=== PATIENT | female | born 1960 | race Caucasian/White ===

== ENCOUNTER → 2017-06-06 | Outpatient (CLI) | payer BC ==
--- NOTE | 2017-06-08 09:58 | MR ---
EXAMINATION TYPE: MR shoulder RT wo con DATE OF EXAM: 06/06/2017 COMPARISON: NONE HISTORY: Right Shoulder Pain x6 Months TECHNIQUE: Multiplanar, multisequence imaging of the right shoulder is performed without contrast. FINDINGS: Rotator Cuff: There is a mid grade full thickness tear of the anterior insertional fibers of the supr aspinatus measuring 1.4 x 1.6 cm superimposed upon moderate tendinopathy with bursal surface fraying of the intact posterior fibers. Hemorrhage is also seen in the area of tear. No muscular atrophy. Mild infraspinatus tendinopathy and bursal surface fraying is seen. No discrete tear. Teres minor is unremarkable and muscle volume and muscle/tendon signal. The subscapularis is also unremarkable in muscle volume and muscle/tendon signal. Acromioclavicular Joint: There is severe acromioclavicular joint arthropathy with subchondral cysts, marginal osteophytes, and capsular hypertrophy creating internal impingement impressing upon the supr aspinatus myotendinous junction and creating narrowing of the subacromial space. Glenohumeral Joint: Small osseous cystic changes are seen of the humeral head at the insertion of the rotator cuff. No significant joint space narrowing is noted. Labrum: There is global labral degeneration without distinct tear. Biceps Tendon: The biceps tendon is intact although there is attenuation proximal to the insertion of the biceps anchor in the intra-articular portion representing moderate grade tendinosis. Bone marrow signal: No focal abnormal marrow signal is appreciated. Other: Small amount of fluid is seen within the subdeltoid sinus subacromial space. IMPRESSION: 1. Grade full-thickness tear of the anterior insertional fibers of the supraspinatus measuring 1.4 x 1.6 cm. There is additional hemorrhage within the area of tear and moderate supraspinatus tendinopath y with bursal surface fraying. No muscular atrophy. 2. Mild infraspinatus tendinopathy with bursal surface fraying. 3. Severe chromic clavicular arthropathy with resulting in internal impingement of the myotendinous j unction of the supraspinatus. 4. Moderate intra-articular portion biceps tendinosis. 5. Global labral degeneration without appreciable tear on this nonarthrographic study. 6. Mild volume subacromial/subdeltoid bursal fluid which may clinically correlate with bursitis.
== END | disposition home or self-care (01) ==
LOC: RADMRIMAIN 16:49
PROVIDERS: ATTEND Orthopaedic Surgery
DX: M75.121 Complete rotator cuff tear or rupture of right shoulder, not specified as traumatic (principal); M75.91 Shoulder lesion, unspecified, right shoulder; M12.9 Arthropathy, unspecified

== ENCOUNTER → 2017-10-24 | Day surgery (SDC) | payer BC ==
[2017-10-22 08:36] VITALS: BMI 36.0
--- NOTE | 2017-10-23 13:58 | HP ---
HISTORY AND PHYSICAL Surgery scheduled for 10/24/2017 Stephanie Cervantes is a 57-year-old patient seen with progressive right shoulder pain. Treatment options were discussed with her. She elected to proceed with right shoulder arthroscopy. Consent regarding the procedure was obtained. PAST MEDICAL HISTORY: Hypothyroidism. PAST SURGICAL HISTORY: Bladder suspension surgery. DAILY MEDICATIONS: Levothyroxine, ibuprofen. ALLERGIES: PENICILLIN, ERYTHROMYCIN. SOCIAL HISTORY: Patient denies tobacco use. PHYSICAL EXAMINATION: Evaluation right shoulder: Flexion 160 degrees, abduction 150 degrees, external rotation is 40 degrees. Tenderness along the anterolateral acromion rotator cuff insertion site. Impingement positive 90 degrees. Distal neurovascular exam intact. RADIOGRAPHS: Radiographs right shoulder revealed a type 2 anterior acromion, evidence for acromioclavicular joint osteoarthritis. MRI right shoulder revealed rotator cuff tear and biceps tendinosis. IMPRESSION: 1. Right shoulder impingement with rotator cuff tear. 2. Hypothyroidism. PLAN: Right shoulder arthroscopy with subacromial decompression probable arthroscopic rotator cuff repair, possible Elham procedure and debridement. MMODL / IJN: [id number] /
[~2017-10-24] MED LIST: LIDOCAINE 1% INJ 10MG/ML (20 ML MDV) ONE; LIDOCAINE 2%-EPI 1:100,000 20 ML VIAL ONE; MIDAZOLAM 2 MG/2 ML VIAL ONE; ONDANSETRON 4 MG/2 ML VIAL ONE; PROPOFOL 10 MG/ML 20 ML VIAL IV ONE; ROPIVACAINE 5 MG/ML 30 ML VIAL ONE; SUCCINYLCHOLINE CHLORIDE 100 MG/5 ML SYR IV ONE; ceFAZolin IN SWFI 2 GM/20 ML SYRINGE IVP ONE; fentaNYL (PF) 50 MCG/ML 2 ML AMP ONE
--- NOTE | 2017-10-24 10:15 | OP ---
OPERATIVE REPORT DATE OF SERVICE: 10/24/2017 PREOPERATIVE DIAGNOSIS: Right shoulder impingement. POSTOPERATIVE DIAGNOSES: 1. Right shoulder rotator cuff tear. 2. Right shoulder impingement. 3. Right shoulder acromioclavicular joint osteoarthritis. 4. Right shoulder partial long head biceps tendon tear. 5. Right shoulder superficial anterior labral tear. PROCEDURE: 1. Right shoulder arthroscopic rotator cuff repair. 2. Right shoulder arthroscopic subacromial decompression. 3. Right shoulder arthroscopic Elham procedure. 4. Right shoulder arthroscopic biceps tenotomy. 5. Right shoulder arthroscopic debridement of labral tear. SURGEON: Luan Garcia MD. CUT OUT STITCHER: SHAYLA Cortez. ANESTHESIA: General with preoperative interscalene block. COMPLICATIONS: None. BLOOD LOSS ESTIMATED: At 10 mL. The patient tolerated the procedure well. DESCRIPTION OF THE PROCEDURE: Stephanie Cervantes is a 57-year-old patient seen with progressive right shoulder pain. After treatment options were discussed with her, she elected to proceed with right shoulder arthroscopy. Consent regarding the procedure was obtained. The patient was taken to the operative suite. The patient underwent a general anesthetic by the department of anesthesia. The patient previously had undergone interscalene block by the department of anesthesia. The patient received preoperative IV antibiotics. The patient was placed in lateral position, secured. Appropriate padding of all bony prominences. The right shoulder was placed into standard traction with 10 pounds longitudinally. The right shoulder was now prepped and draped in normal sterile orthopedic fashion. A posterior incision was made for a posterior working portal site and a trocar and cannula were inserted into the glenohumeral joint. I inserted the spinal needle anteriorly attaching the anterior working portal site. Arthroscopy was initiated. There was superficial tearing of the anterior and superior labrum. Partial tearing long-head biceps hyperemia. An obvious rotator cuff tear visualized from the glenohumeral site was present. There were mild grade 1 chondral changes of the glenohumeral joint. I debrided the superficial labral tears down to stable tissue. I performed arthroscopic biceps tenotomy. The residual labrum was probed and found to be stable. Instruments now removed from glenohumeral joint. Utilizing the posterior working portal site, I introduced the trocar and cannula to subacromial space and arthroscopy was initiated there. I made an incision 2 fingerbreadths lateral to the anterior acromion, inserted my trocar followed by ArthroCare cautery. I now began debriding the thick subacromial bursal tissue that was present exposing the undersurface of the anterior acromion and AC joint. There was a prominent anterior acromion with diminished subacromial space as well as acromioclavicular joint osteoarthritis. I performed a subacromial decompression followed by a Elham procedure. We had a good decompression, subacromial space, and adequate Elham procedure. I turned my attention to the rotator cuff tear. It was about 2 to 2.5 cm retracted 1 cm, but freely mobile over the footprint. I debrided the margins gaining non stable tendon tissue. I debrided the footprint with a motorized bur. I created an accessory portal of the lateral acromion. I introduced 2 medial row anchors, Arthrex 4.75 with 2 sutures each. I now shuttled all 8 limbs of suture through good bites rotator cuff tendon. I now crisscrossed the sutures and introduced 2 lateral row Arthrex 4.75 anchors which compressed the tendon along the footprint very nicely. The residual suture limbs were clipped. We had a good stable repair with good compression of the and the footprint. I injected 1 mL of Chris intraarticular. I repaired all portal sites with nylon suture. I applied sterile dressings followed by a shoulder immobilizer. The patient was then awakened, transferred to bed, and taken recovery in stable condition. Brady MCGUIRE assisted with the procedure. MMDIANA / MARIANN: [id number] /
== END ==
LOC: OR 05:40
PROVIDERS: ATTEND Orthopaedic Surgery
DX: M75.101 Unspecified rotator cuff tear or rupture of right shoulder, not specified as traumatic (principal); M75.41 Impingement syndrome of right shoulder; M19.011 Primary osteoarthritis, right shoulder; S46.111A Strain of muscle, fascia and tendon of long head of biceps, right arm, initial encounter; S43.491A Other sprain of right shoulder joint, initial encounter; X58.XXXA Exposure to other specified factors, initial encounter; E03.9 Hypothyroidism, unspecified; K21.9 Gastro-esophageal reflux disease without esophagitis; Z79.1 Long term (current) use of non-steroidal anti-inflammatories (NSAID); Z79.890 Hormone replacement therapy; Z79.899 Other long term (current) drug therapy; Z88.1 Allergy status to other antibiotic agents; Z88.0 Allergy status to penicillin
CPT/HCPCS: 64415; 29824; 29827; 29826; C1713 ×2; C1765

== ENCOUNTER → 2020-09-30 | Outpatient (CLI) | payer BC ==
--- NOTE | 2020-09-30 18:55 | MR ---
EXAMINATION TYPE: MR knee LT wo con DATE OF EXAM: 09/30/2020 COMPARISON: Plain film 09/14/2020 HISTORY: Left knee pain, swelling, and locking for 6 weeks after lifting heavy. TECHNIQUE: Multiplanar, multisequence imaging of the left knee is performed without IV contrast. FINDINGS: MEDIAL MENISCUS: Anterior and posterior horns are intact without tear. LATERAL MENISCUS: Anterior and posterior horns are intact without tear. CRUCIATE LIGAMENTS: Distal fibers anterior cruciate ligament show fluid signal, there may be partial tear or mucoid degeneration COLLATERAL LIGAMENTS: The medial collateral ligament and lateral collateral ligament complex are inta ct and unremarkable. EXTENSOR MECHANISM: Visualized quadriceps and patellar tendons are intact. EFFUSION: There is a suprapatellar joint effusion which is small. POPLITEAL CYST: Semimembranosus gastrocnemius cyst measures approximately 6.8 x 4.1 x 1.5 cm TRICOMPARTMENT SPACES: Joint space loss at the patellofemoral joint and medial compartment CARTILAGE: There is grade IV chondromalacia at the posterior patella, grade 3 to grade IV chondromala yazan at the medial compartment BONE MARROW SIGNAL: Probable reactive marrow signal change present in the medial aspect of the medial femoral condyle, proximal tibia OTHER: There are at least 3 loose bodies at the anterior aspect of the joint, largest measures appro ximately 7 mm. There is subcutaneous edema change. 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
== END | disposition home or self-care (01) ==
LOC: RADMRIMAIN 16:22
PROVIDERS: ATTEND Orthopaedic Surgery
DX: M17.12 Unilateral primary osteoarthritis, left knee (principal); M71.22 Synovial cyst of popliteal space [Baker], left knee

== ENCOUNTER → 2020-11-03 | Outpatient (CLI) | payer BC | END | disposition home or self-care (01) ==

== ENCOUNTER 2020-11-17 07:27 | Day surgery (SDC) | payer BC ==
[2020-11-08 14:47] VITALS: BMI 36.8
--- NOTE | 2020-11-16 18:06 | HP ---
HISTORY AND PHYSICAL DATE OF SURGERY: 11/17/2020 Stephanie Cervantes is a 60-year-old patient seen with progressive left knee pain. We discussed treatment options. She elected to proceed with arthroscopy. Consent was obtained. PAST MEDICAL HISTORY: Hypothyroidism. PAST SURGICAL HISTORY: Bladder suspension surgery. MEDICATIONS: Levothyroxine. ALLERGIES: PENICILLIN, ERYTHROMYCIN. SOCIAL HISTORY: She denies tobacco use. PHYSICAL EVALUATION OF THE LEFT KNEE: Range of motion is 0 to 130. Mild effusion. Tenderness medial joint line. Positive medial Tyesha's. Ligaments stable. Hip rotation without pain. Distal neurovascular exam is intact. RADIOGRAPHS: Left knee radiographs revealed moderate osteoarthritis. MRI left knee revealed loose bodies, osteoarthritis, and Larios cyst. IMPRESSION: 1. Internal derangement of left knee with osteochondral tear and loose bodies. 2. Hypothyroidism. PLAN: Left knee arthroscopy with chondroplasty, removal of loose bodies and partial synovectomy. MMODL / IJN: [id number] /
[~2020-11-17 07:27] MED LIST changes: +LACTATED RINGERS 1,000 ML IV SCH; +LIDOCAINE 1% (10MG/ML) FOR IV START INTRADERMA PRN; -LIDOCAINE 1% INJ 10MG/ML (20 ML MDV) ONE; -LIDOCAINE 2%-EPI 1:100,000 20 ML VIAL ONE; -MIDAZOLAM 2 MG/2 ML VIAL ONE; +ONDANSETRON 4 MG/2 ML VIAL IVP ONE; -ONDANSETRON 4 MG/2 ML VIAL ONE; -PROPOFOL 10 MG/ML 20 ML VIAL IV ONE; -ROPIVACAINE 5 MG/ML 30 ML VIAL ONE; +SCOPOLAMINE 1.5MG/72HR PATCH TRANSDERM ONE; -SUCCINYLCHOLINE CHLORIDE 100 MG/5 ML SYR IV ONE; -ceFAZolin IN SWFI 2 GM/20 ML SYRINGE IVP ONE; -fentaNYL (PF) 50 MCG/ML 2 ML AMP ONE
[2020-11-17] MEDS: ONDANSETRON 4 MG/2 ML VIAL IVP ONE ×2 (08:15→08:28)
[2020-11-17] MEDS: DEXAMETHASONE SOD PHOSPHATE 4 MG/ML 1 ML VIAL IV ONE ×2 (08:15→08:27)
[2020-11-17] MEDS ORDERED: PROPOFOL 10 MG/ML 20 ML VIAL IV ONE (08:21)
[2020-11-17] MEDS ORDERED: fentaNYL (PF) 50 MCG/ML 2 ML AMP ONE (08:21)
[2020-11-17] MEDS ORDERED: METOPROLOL TARTRATE 5 MG/5 ML VIAL IVP ONE (08:21)
[2020-11-17] MEDS ORDERED: KETOROLAC 15 MG/ML 1 ML VIAL ONE (08:21)
[2020-11-17] MEDS ORDERED: LIDOCAINE 1% INJ 10MG/ML (20 ML MDV) ONE (08:21)
[2020-11-17] MEDS ORDERED: MIDAZOLAM 2 MG/2 ML VIAL ONE (08:21)
[2020-11-17] MEDS ORDERED: BUPIVACAINE (PF) 0.25% 30 ML VIAL SQ ONE (08:25)
[2020-11-17 09:15] VITALS: TEMP 97
--- NOTE | 2020-11-17 09:19 | P.OP ---
Date of Procedure: 11/17/20 Preoperative Diagnosis: Internal derangement left knee Postoperative Diagnosis: 1. Tear medial meniscus left 2. Grade 3/4 chondromalacia medial femoral condyle left knee 3. Reactive synovitis medial, lateral and suprapatellar compartments left knee Procedure(s) Performed: 1. Arthroscopic partial medial meniscectomy left knee 2. Arthroscopic chondroplasty medial femoral condyle left knee 3. Arthroscopic microfracture medial femoral condyle left knee 4. Arthroscopic partial synovectomy medial, lateral and suprapatellar compartments left knee Anesthesia: SEANA, local Surgeon: Luan Garcia Estimated Blood Loss (ml): 5 Pathology: none sent Condition: stable Disposition: PACU Indications for Procedure: 60-year-old patient seen with progressive left knee pain. After treatment options were discussed she elected to proceed with arthroscopy. Operative Findings: See description of procedure Description of Procedure: Patient was taken to the operative suite. Patient underwent a general anesthetic by the department of anesthesia. Patient was given preoperative antibiotics. The left lower extremity was placed in a well-padded arthroscopic leg bryant. The left leg was prepped and draped in the normal sterile orthopedic fashion. A lateral parapatellar and suprapatellar incision was made. Trochars were inserted. Arthroscopy was initiated. Suprapatellar pouch revealed diffuse thick reactive synovitis. The patellofemoral joint appeared particularly congruently. There was grade 2 chondromalacia with no significant osteochondral tears present. The scope was guided into the medial gutter. No loose bodies or plica were identified. The scope was then guided into the medial compartment. A medial parapatellar incision was made. Trocar inserted followed by probe. There was a tear involving the posterior horn medial meniscus. There were grade 3/4 chondromalacia changes of the medial femoral condyle with some osteochondral tears present. There was some reactive synovitis anteriorly. I performed a partial medial meniscectomy getting down to stable meniscal tissue. I performed a chondroplasty of the medial femoral condyle getting down to stable osteochondral tissue. I performed a partial synovectomy decompressing the thick reactive synovitis. The residual meniscus was probed and found to be stable. There was good decompression of the synovitis. The residual osteochondral surface was stable. There was an area along the anterior weightbearing surface of the medial femoral condyle with exposed bone measuring approximately 1 cm diameter. I performed a microfracture to the area penetrating the bone with resultant bleeding at the microfracture site. I again probed the osteochondral surface and stable. Scope and probe were then guided into the intercondylar notch. Cruciates were identified, probed and found to be stable. The scope and probe were then guided into lateral compartment. The lateral meniscus was probed and found to be stable. There was no significant chondromalacia. There was thick reactive synovitis anteriorly. I introduced a motorized shaver and performed a partial synovectomy. The shaver was removed. There was good decompression of the synovitis. The scope was in guided back into the suprapatellar compartment. I introduced a motorized shaver into the suprapatellar compartment. I debrided some piecemeal fragments of meniscus I encountered. I performed a partial synovectomy decompressing the thick reactive synovitis. The shaver was removed. I did not visualize any loose bodies. I took one more look around the entire knee, no residual debris or loose bodies were identified. Instruments were now removed from the joint. The joint was infiltrated with .25% Marcaine. Steri- Strips were applied to the portal sites. Sterile dressings were applied. The patient was placed into a MISSY hose. No tourniquet was utilized. The patient was awakened, transferred to a bed and taken to recovery stable satisfactory condition.
[2020-11-17] MEDS: fentaNYL (PF) 50 MCG/ML 2 ML AMP IV PRN ×2 (09:20→09:27)
[2020-11-17 09:33] VITALS: RESP 16
[2020-11-17] MEDS ORDERED: HYDROcodone/APAP 5-325MG 1 EACH TAB ONE (09:58)
[2020-11-17] MEDS ORDERED: HYDROcodone/APAP 5-325MG 1 EACH TAB PO ONE (09:59)
[2020-11-17 10:04] VITALS: BP 140/69; PULSE 61
== END 2020-11-17 10:55 | disposition home or self-care (01) ==
LOC: OR 07:27
PROVIDERS: ATTEND Orthopaedic Surgery
DX: M23.304 Other meniscus derangements, unspecified medial meniscus, left knee (principal); M94.262 Chondromalacia, left knee; M65.862 Other synovitis and tenosynovitis, left lower leg; E03.9 Hypothyroidism, unspecified; Z79.899 Other long term (current) drug therapy; Z88.1 Allergy status to other antibiotic agents; Z88.0 Allergy status to penicillin; K21.9 Gastro-esophageal reflux disease without esophagitis
CPT/HCPCS: 29881; 29876; J2250; J1100; J0690; J2405; J2001; J3010; J1885; J2704

== ENCOUNTER → 2021-03-10 | Outpatient (CLI) | payer BC ==
[2021-03-10 16:14] LABS: Basophils % (A) 0 %; Eosinophils # (A) 0.2 k/uL (0-0.7); Eosinophils % (A) 2 %; HCT 40.3 % (34.0-46.0); HGB 13.2 gm/dL (11.4-16.0); Lymphocytes # (A) 1.8 k/uL (1.0-4.8); Lymphocytes % (A) 24 %; MCH 31.1 pg (25.0-35.0); MCHC 32.8 g/dL (31.0-37.0); MCV 94.9 fL (80.0-100.0); Mean Platelet Volume 7.2; Monocytes # (A) 0.4 k/uL (0-1.0); Monocytes % (A) 5 %; Neutrophils # (A) 4.9 k/uL (1.3-7.7); Neutrophils % (A) 67 %; Platelet Count 279 k/uL (150-450); RBC 4.25 m/uL (3.80-5.40); RDW 12.6 % (11.5-15.5); WBC 7.3 k/uL (3.8-10.6)
[2021-03-10 16:20] LABS: Potassium 4.2 mmol/L (3.5-5.1)
[2021-03-10 16:23] LABS: INR 0.9 (<1.2); Prothrombin Time 9.8 sec (9.0-12.0)
== END | disposition home or self-care (01) ==
LOC: LABPAT 15:44
PROVIDERS: ATTEND Orthopaedic Surgery
DX: Z01.812 Encounter for preprocedural laboratory examination (principal); M17.11 Unilateral primary osteoarthritis, right knee
CPT/HCPCS: 80051; 85025; 85610; 87070

== ENCOUNTER 2021-03-21 10:40 | Day surgery (SDC) | payer BC ==
[2021-03-17 08:54] VITALS: BMI 35.2
--- NOTE | 2021-03-20 11:54 | HP ---
HISTORY AND PHYSICAL DATE OF SURGERY: 03/21/2021 Stephanie Cervantes is a 61-year-old patient seen with symptomatic right knee osteoarthritis. After discussing treatment options with the patient, she elected to proceed with right total knee arthroplasty. Consent regarding the procedure was obtained. PAST MEDICAL HISTORY: Hypothyroidism. PAST SURGICAL HISTORY: Bladder suspension surgery. DAILY MEDICATIONS: Levothyroxine. ALLERGIES: PENICILLIN. SOCIAL HISTORY: She denies tobacco use. PHYSICAL EVALUATION OF THE RIGHT KNEE: Her range of motion is zero to 120. Mild effusion. Tenderness, medial joint line. Crepitus, medial and patellofemoral compartments with range of motion. Pain with patellofemoral compression. Ligaments stable. Hip rotation without pain. Distal neurovascular exam intact. Right knee radiographs reveal severe osteoarthritic changes. IMPRESSION: 1. Right knee osteoarthritis. 2. Hypothyroidism. PLAN: Right total knee arthroplasty. MMODL / MARIANN: [id number] /
[~2021-03-21 10:40] MED LIST changes: +ACETAMINOPHEN TAB 500 MG TAB PO PRN; +DEXAMETHASONE SOD PHOSPHATE 4 MG/ML 1 ML VIAL IV ONE; -LIDOCAINE 1% (10MG/ML) FOR IV START INTRADERMA PRN; +MELOXICAM 7.5 MG TAB PO PRN; +MIDAZOLAM 2 MG/2 ML VIAL IV PRN; +ROPIVACAINE/EPI/CLONIDINE/KET 50 ML SYRINGE MISCELLANE PRN; -SCOPOLAMINE 1.5MG/72HR PATCH TRANSDERM ONE; +TRANEXAMIC ACID 1,000 MG in SODIUM CHLORIDE 0.9% 100 ML IVPB PRN
[2021-03-21 11:18] VITALS: RESP 16
[2021-03-21] MEDS ORDERED: MIDAZOLAM 2 MG/2 ML VIAL IVP ONE (12:18)
[2021-03-21] MEDS ORDERED: fentaNYL (PF) 50 MCG/ML 2 ML AMP IVP ONE (12:18)
[2021-03-21] MEDS ORDERED: SODIUM CHLORIDE 0.9% 100 ML BAG ONE (12:54)
[2021-03-21] MEDS ORDERED: SODIUM CHLORIDE 0.9% (PF) 10 ML VIAL ONE (12:54)
[2021-03-21] MEDS ORDERED: fentaNYL (PF) 50 MCG/ML 2 ML AMP ONE (12:54)
[2021-03-21] MEDS ORDERED: ROPIVACAINE 5 MG/ML 30 ML VIAL ONE (12:54)
[2021-03-21] MEDS ORDERED: LIDOCAINE 1% INJ 10MG/ML (20 ML MDV) ONE (12:54)
[2021-03-21] MEDS ORDERED: HYDROmorphone (PF) 1 MG/ML ONE (12:54)
[2021-03-21] MEDS ORDERED: PROPOFOL 10 MG/ML 20 ML VIAL IV ONE (12:54)
[2021-03-21] MEDS ORDERED: SUCCINYLCHOLINE CHLORIDE 100 MG/5 ML SYR IV ONE (12:54)
[2021-03-21] MEDS ORDERED: MIDAZOLAM 2 MG/2 ML VIAL ONE (12:54)
[2021-03-21] MEDS ORDERED: TRANEXAMIC ACID 1,000 MG/10 ML VIAL ONE (12:54)
[2021-03-21] MEDS ORDERED: ROPIVACAINE 0.2%-NS ON-Q PUMP 1,090 MG, EMPTY PAIN BALL 1 EACH MISCELLANE PRN (13:20)
--- NOTE | 2021-03-21 13:22 | P.ANPRN ---
Procedure Note - Anesthesia - Nerve Block Performed Right Adductor Canal Infusion Time Out Performed: Yes Date of Procedure: 03/21/21 Procedure Start Time: 12:17 Procedure Stop Time: 12:25 Location of Patient: PreOp Indication: Acute Post-Operative Pain, Requested by Surgeon Specifically requested for management of pain by DrRashel: Luan Garcia Sedation Type: Sedate with meaningful contact maintained Preparation: Sterile Prep, Sterile Dressing Position: Supine Needle Types: Pajunk Needle Gauge: 18 Ultrasound used to visualize needle placement: Yes Ultrasound used to observe medication spread: Yes Injectate: 0.5% Ropivacaine (see comment for volume) (15 ml + 15 Ml NS) Blood Aspirated: No Pain Paresthesia on Injection Noted: No Resistance on Injection: Normal Image Stored and Saved: Yes Events: Uneventful and Well Tolerated
[2021-03-21] MEDS ORDERED: ceFAZolin 1,000 MG in SODIUM CHLORIDE 0.9% 1,000 ML IRRIGATION ONE (13:23)
--- NOTE | 2021-03-21 13:24 | P.ANPRN ---
Procedure Note - Anesthesia - Nerve Block Performed Right iPack Single Time Out Performed: Yes Date of Procedure: 03/21/21 Procedure Start Time: 12: Procedure Stop Time: 12:33 Location of Patient: PreOp Indication: Requested by Surgeon Specifically requested for management of pain by DrRashel: Luan Garcia Sedation Type: Sedate with meaningful contact maintained Preparation: Sterile Prep Position: Left Lateral Catheter: None Needle Types: Pajunk Needle Gauge: 21 Ultrasound used to visualize needle placement: Yes Ultrasound used to observe medication spread: Yes Injectate: 0.5% Ropivacaine (see comment for volume) (15 ml + 15 ml NS) Blood Aspirated: No Pain Paresthesia on Injection Noted: No Resistance on Injection: Normal Image Stored and Saved: Yes Events: Uneventful and Well Tolerated
--- NOTE | 2021-03-21 14:32 | P.OP ---
Date of Procedure: 03/21/21 Preoperative Diagnosis: Right knee osteoarthritis Postoperative Diagnosis: Right knee osteoarthritis Procedure(s) Performed: Right total knee arthroplasty Implants: 1. Depuy attune size 5 right cruciate retaining cemented femur 2. Depuy attune size 5 fixed bearing cemented tibial baseplate 3. Depuy attune size 5 fixed bearing cruciate retaining 12 mm polyethylene tibial insert 4. Depuy attune 35 mm all polyethylene cemented patella Anesthesia: GETA, regional (Adductor canal catheter, Ipack block) Surgeon: Luan Garcia [employer] Property Manager #1: Mendoza Ritter Estimated Blood Loss (ml): 45 Pathology: other (Bone) Condition: stable Disposition: PACU Indications for Procedure: 61-year-old patient seen with symptomatic right knee osteoarthritis. After treatment options were discussed, she elected to proceed with total knee art hroplasty. Operative Findings: See description of procedure Description of Procedure: Patient was taken to the operative suite after having an adductor canal catheter placed by the department of anesthesia as well as and Hypaque block for postoperative pain management. Patient underwent a general anesthetic by the department of anesthesia. Patient was given preoperative IV intake antibiotics and TXA. A well-padded tourniquet was placed about the right lower extremity. The lower extremity was then prepped and draped in the normal sterile orthopedic fashion. The extremity was elevated, a tourniquet was insufflated to 300. A standard anterior incision was made sharply through skin. Dissection was taken down through the subcutaneous soft tissues down to the extensor mechanism. A medial arthrotomy was performed, patella was everted and knee was flexed. There was advanced osteoarthritis noted. I introduced my distal intramedullary femoral drill. I then introduced the distal femoral cutting jig. Mendoza MCGUIRE secured the cutting jig with 2 pins. I held retractors in position while Mendoza MCGUIRE performed the distal femoral resection through the guide area we now removed her distal femoral cutting guide. We now placed our 4-in-1 femoral cutting block and positioned and it was secured with 2 pins by Mendoza MCGUIRE while I held the block in position. The distal femoral finishing was now completed. A proximal tibial cutting guide was positioned. I held the guide in the appropriate position with both hands while Mendoza MCGUIRE inserted stabilizing pins into the guide. Proximal tibial cut was made. We now placed a trial femoral component into position, along with an appropriate size tibial tray and insert. We now took the knee through range of motion and had full extension good flexion and good overall soft tissue balance noted. The patella was everted and stabilized with 2 towel clips held by Mendoza MCGUIRE while I performed a flush with patellar quad tendon utilizing a fresh sawblade. We templated the patella, appropriate drill holes were made. An appropriate trial patella was positioned, knee was taken through full range of motion with the patella tracking very nicely. The trial patella was removed. Drill holes were made through the femoral component. All trial components were removed after marking off the appropriate rotation of the tibia. Retractors were now positioned along the proximal tibia. An appropriate keel punch was made with the appropriate size tibial guide by myself while Mendoza MCGUIRE assisted by holding retractors. At this point appropriate size implants were chosen and opened. The joint was irrigated copiously with pulse lavage mechanical irrigation. The posterior capsule was infiltrated with local analgesic. The wound was irrigated with pulse lavage mechanical irrigation. We mixed antibiotic methylmethacrylate. We placed the knee into flexion. We placed multiple retractors assisted by Mendoza MCGUIRE to expose the proximal tibia. Once the methyl methacrylate was ready, the tibial component was cemented into place removing any excess methylmethacrylate form by both myself and Mendoza MCGUIRE. The femoral component was cemented into place removing the removing any excess methylmethacrylate performed by both myself and Mendoza MCGUIRE. We then inserted the appropriate size polyethylene tibial insert. We made sure that it was locked into position. We took the knee into full extension, and then back in a flexion making sure we had removed any excess methylmethacrylate. The patellar component was then cemented down and secured with clamp. Excess methylmethacrylate removed. We kept the knee in full extension, patellar clamp in position until methylmethacrylate had hardened. Once it had hardened the patellar clamp was removed. The knee was taken through full range of motion. The patella tracked nicely. There was good soft tissue balancing. The tourniquet was now released. Additional hemostasis was achieved via electrocautery. A second gram of TXA was given. The wound again was irrigated with pulse lavage mechanical irrigation. The superficial soft tissues were infiltrated local analgesic. The extensor mechanism was repaired with Vicryl. We checked the repair with range of motion and it was stable. The subcutaneous soft tissues were repaired with Vicryl in layers. The skin was approximated with pernio/Dermabond. Sterile dressings were applied followed by loose web roll and Jaxon bandage. The patient was transferred to a bed, and taken to recovery in stable and satisfactory condition. Mendoza MCGUIRE assisted with this complex procedure.
[2021-03-21] MEDS ORDERED: ONDANSETRON 4 MG/2 ML VIAL IVP PRN (14:33)
[2021-03-21] MEDS ORDERED: NALOXONE 0.4 MG/ML 1 ML VIAL IV PRN (14:33)
[2021-03-21] MEDS ORDERED: HYDROmorphone 0.2 MG/1 ML SYRINGE IVP PRN (14:33)
[2021-03-21] MEDS ORDERED: HYDROmorphone 1 MG/ML 1 ML SYRINGE IVP PRN (14:33)
[2021-03-21] MEDS ORDERED: HYDROmorphone 0.5 MG/0.5 ML SYRINGE IVP PRN (14:33)
[2021-03-21] MEDS ORDERED: HYDROcodone/APAP 5-325MG 1 EACH TAB PO PRN (14:33)
[2021-03-21] MEDS ORDERED: HYDROcodone/APAP 7.5-325MG 1 EACH TAB PO PRN (14:33)
[2021-03-21] MEDS ORDERED: LACTATED RINGERS 1,000 ML IV ONE ×2 (14:33→15:26)
[2021-03-21] MEDS ORDERED: KETOROLAC 30 MG/ML 1 ML VIAL ONE (15:09)
[2021-03-21] MEDS: HYDROmorphone 0.5 MG/0.5 ML SYRINGE IVP PRN ×2 (15:10→16:00)
[2021-03-21] MEDS ORDERED: KETOROLAC 15 MG/ML 1 ML VIAL IVP ONE (15:13)
[2021-03-21 15:25] VITALS: TEMP 97.4
--- NOTE | 2021-03-21 15:36 | XR ---
Right knee HISTORY: Status post right knee arthroplasty. 2 views of the right knee Patient is status post right knee arthroplasty. There is anatomic alignment. Lucency is present withi n the soft tissues. IMPRESSION: Orthopedic follow-up.
[2021-03-21 17:51] VITALS: BP 137/84
[2021-03-21 19:22] VITALS: PULSE 91
== END 2021-03-21 19:15 | disposition home health service (06) ==
LOC: OR 10:40
PROVIDERS: ATTEND Orthopaedic Surgery
DX: M17.11 Unilateral primary osteoarthritis, right knee (principal); E03.9 Hypothyroidism, unspecified; R32 Unspecified urinary incontinence; K21.9 Gastro-esophageal reflux disease without esophagitis; Z88.1 Allergy status to other antibiotic agents; Z88.0 Allergy status to penicillin; Z79.899 Other long term (current) drug therapy
CPT/HCPCS: 97110; 97161; 64999; 64448; 76942; 88300; 73560; 27447; C1776; C1713 ×2; J2250; J1100; J0690 ×2; J2405; J2001; J3010; J1170 ×2; J2795 ×2; J1885; J0330; J2704

== ENCOUNTER → 2022-04-26 | Outpatient (CLI) | payer BC ==
[2022-04-26 15:25] LABS: INR 0.9 (<1.2); Prothrombin Time 9.9 sec (9.0-12.0)
[2022-04-26 22:47] LABS: Basophils # (A) 0.03 X 10*3/uL (0.00-0.10); Basophils % (A) 0.5 %; Eosinophils # (A) 0.15 X 10*3/uL (0.04-0.35); Eosinophils % (A) 2.4 %; HCT 40.6 % (37.2-46.3); HGB 12.8 g/dL (12.0-15.0); Immature Grans, Automated 0.2 %; Lymphocytes # (A) 1.65 X 10*3/uL (0.90-5.00); Lymphocytes % (A) 26.4 %; MCH 30.1 pg (27.0-32.0); MCHC 31.5 g/dL (32.0-37.0); MCV 95.5 fL (80.0-97.0); Mean Platelet Volume 10.1 fL (9.5-12.2); Monocytes # (A) 0.39 X 10*3/uL (0.20-1.00); Monocytes % (A) 6.3 %; NRBC Per 100 WBC 0 /100 WBCS (0.0-0.0); Neutrophils # (A) 4.01 X 10*3/uL (1.80-7.70); Neutrophils % (A) 64.2 %; Platelet Count 287 X 10*3/uL (140-440); RBC 4.25 X 10*6/uL (4.10-5.20); RDW 13.2 % (11.5-14.5); WBC 6.24 X 10*3/uL (4.50-10.00)
[2022-04-26 23:59] LABS: African American GFR (CKD) 76.8 (60.0-200.0); Anion Gap 8.2 mmol/L (10.00-18.00); BUN/Creat Ratio 18.38 Ratio (12.00-20.00); Calcium 9.4 mg/dL (8.7-10.3); Carbon Dioxide 27.9 mmol/L (20.0-27.5); Non-African American GFR(CKD) 66.3 (60.0-200.0); Potassium 4.8 mmol/L (3.5-5.5)
== END | disposition home or self-care (01) ==
LOC: LABPAT 14:07
PROVIDERS: ATTEND Orthopaedic Surgery
DX: Z01.818 Encounter for other preprocedural examination (principal); Z22.322 Carrier or suspected carrier of Methicillin resistant Staphylococcus aureus; M17.12 Unilateral primary osteoarthritis, left knee; R94.31 Abnormal electrocardiogram [ECG] [EKG]
CPT/HCPCS: 80048; 85025; 85610; 87070; 93005

== ENCOUNTER 2022-05-15 08:18 | Day surgery (SDC) | payer BC ==
[2022-05-08 15:47] VITALS: BMI 36.8
--- NOTE | 2022-05-14 23:42 | HP ---
HISTORY AND PHYSICAL DATE OF SURGERY: 05/15/2022. HISTORY OF PRESENT ILLNESS: Stephanie Cervantes is a 62-year-old patient, seen with symptomatic left knee osteoarthritis. We discussed options for treatment. She elected to proceed with left total knee arthroplasty. Consent was obtained. PAST MEDICAL HISTORY: Hypothyroidism. PAST SURGICAL HISTORY: Right total knee arthroplasty, right shoulder arthroscopy, bladder suspension surgery. DAILY MEDICATIONS: Levothyroxine, Tylenol. ALLERGIES: Penicillin, erythromycin. SOCIAL HISTORY: She denies tobacco use. PHYSICAL EVALUATION OF THE LEFT KNEE: Range of motion is 0 to 125 degrees. Mild effusion. Tenderness in the medial joint line. Crepitus, medial patellofemoral compartments with range of motion. Some pain with patellofemoral compression. Ligaments stable. Hip rotation without pain. Distal neurovascular exam is intact. RADIOGRAPHS: Left knee radiographs revealed severe osteoarthritic changes. IMPRESSION: 1. Left knee osteoarthritis. 2. Hypothyroidism. PLAN: Left total knee arthroplasty. MMODL / IJN: [id number] /
[~2022-05-15 08:18] MED LIST changes: +HYDROmorphone 0.5 MG/0.5 ML SYRINGE IVP PRN; +LIDOCAINE 1% (10MG/ML) FOR IV START INTRADERMA PRN; -MIDAZOLAM 2 MG/2 ML VIAL IV PRN; -ROPIVACAINE/EPI/CLONIDINE/KET 50 ML SYRINGE MISCELLANE PRN; -TRANEXAMIC ACID 1,000 MG in SODIUM CHLORIDE 0.9% 100 ML IVPB PRN; +TRANEXAMIC ACID IN NACL,ISO-OS 1,000 MG in SALINE 1 100ML.BAG IVPB PRN
[2022-05-15] MEDS ORDERED: MIDAZOLAM 2 MG/2 ML VIAL IVP ONE (09:39)
[2022-05-15] MEDS ORDERED: ROPIVACAINE 5 MG/ML 30 ML VIAL ONE (10:00)
[2022-05-15] MEDS ORDERED: GLYCOPYRROLATE 0.2 MG/ML 2 ML VIAL ONE (10:00)
[2022-05-15] MEDS ORDERED: DEXAMETHASONE SOD PHOSPHATE 4 MG/ML 1 ML VIAL ONE (10:00)
[2022-05-15] MEDS ORDERED: SUCCINYLCHOLINE CHLORIDE 200 MG/10 ML VIAL IV ONE (10:00)
[2022-05-15] MEDS ORDERED: ROCURONIUM 10 MG/ML (5 ML VIAL) IV ONE (10:00)
[2022-05-15] MEDS ORDERED: NEOSTIGMINE 1 MG/ML 10 ML VIAL ONE (10:00)
[2022-05-15] MEDS ORDERED: PROPOFOL 10 MG/ML 20 ML VIAL IV ONE (10:00)
[2022-05-15] MEDS ORDERED: ESMOLOL 100 MG/10 ML VIAL ONE (10:00)
[2022-05-15] MEDS ORDERED: TRANEXAMIC ACID IN NACL,ISO-OS 1,000 MG/100 ML BAG ONE (10:00)
[2022-05-15] MEDS ORDERED: fentaNYL (PF) 50 MCG/ML 2 ML AMP ONE (10:00)
[2022-05-15] MEDS ORDERED: LIDOCAINE 2% INJ 20 MG/ML (2 ML VIAL) ONE (10:00)
[2022-05-15] MEDS ORDERED: ceFAZolin 1,000 MG in SODIUM CHLORIDE 0.9% 1,000 ML IRRIGATION ONE (10:33)
[2022-05-15] MEDS ORDERED: ONDANSETRON 4 MG/2 ML VIAL IVP PRN (11:40)
[2022-05-15] MEDS ORDERED: HYDROmorphone 0.5 MG/0.5 ML SYRINGE IVP PRN ×3 (11:40)
[2022-05-15] MEDS ORDERED: LACTATED RINGERS 1,000 ML IV ONE ×2 (11:40→11:50)
[2022-05-15] MEDS ORDERED: HYDROcodone/APAP 7.5-325MG 1 EACH TAB PO PRN (11:40)
[2022-05-15] MEDS ORDERED: NALOXONE 0.4 MG/ML 1 ML VIAL IV PRN (11:40)
[2022-05-15] MEDS ORDERED: HYDROcodone/APAP 5-325MG 1 EACH TAB PO PRN (11:40)
--- NOTE | 2022-05-15 11:40 | P.OP ---
Date of Procedure: 05/15/22 Preoperative Diagnosis: Left knee osteoarthritis Postoperative Diagnosis: Left knee osteoarthritis Procedure(s) Performed: Left total knee arthroplasty Implants: 1. Depuy attune size 5 left cruciate retaining cemented femur 2. Depuy attune size 4 fixed bearing cemented tibial baseplate 3. Depuy attune size 5 cruciate fixed-bearing retaining 8 mm polyethylene tibial insert 4. Depuy attune 32 mm all polyethylene cemented patella Anesthesia: GETA, regional (Adductor Canal catheter, Ipack block) Surgeon: Luan Garcia [employer] Machine Mechanic Supervisor #1: Saul Ramirez Estimated Blood Loss (ml): 45 Pathology: other (Bone) Condition: stable Disposition: PACU Indications for Procedure: 62-year-old patient seen with symptomatic left knee osteoarthritis. After treatment options were discussed, she elected to proceed with total knee arth roplasty. Operative Findings: see description of procedure Description of Procedure: Patient was taken to the operative suite after having an adductor canal catheter placed by the department of anesthesia. Patient underwent a general anesthetic by the department of anesthesia. Patient was given preoperative IV intake antibiotics and TXA. A well-padded tourniquet was placed about the left lower extremity. The lower extremity was then prepped and draped in the normal sterile orthopedic fashion. The extremity was elevated, a tourniquet was insufflated to 300. A standard anterior incision was made sharply through skin. Dissection was taken down through the subcutaneous soft tissues down to the extensor mechanism. A medial arthrotomy was performed, patella was everted and knee was flexed. There was advanced osteoarthritis noted. I introduced my distal intramedullary femoral drill. I then introduced the distal femoral cutting jig. Brady MCGUIRE secured the cutting jig with 2 pins. I held retractors in position while Brady MCGUIRE performed the distal femoral resection through the guide area we now removed her distal femoral cutting guide. We now placed our 4-in-1 femoral cutting block and positioned and it was secured with 2 pins by Brady MCGUIRE while I held the block in position. The distal femoral finishing was now completed. A proximal tibial cutting guide was positioned. I held the guide in the appropriate position with both hands well Brady MCGUIRE inserted stabilizing pins into the guide. Proximal tibial cut was made. We now placed a trial femoral component into position, along with an appropriate size tibial tray and insert. We now took the knee through range of motion and had full extension good flexion and good overall soft tissue balance noted. The patella was everted and stabilized with 2 towel clips held by Brady MCGUIRE while I performed a flush with patellar quad tendon utilizing a fresh sawblade. We templated the patella, appropriate drill holes were made. An appropriate trial patella was positioned, knee was taken through full range of motion with the patella tracking very nicely. The trial patella was removed. Drill holes were made through the femoral component. All trial components were removed after marking off the appropriate rotation of the tibia. Retractors we re now positioned along the proximal tibia. An appropriate keel punch was made with the appropriate size tibial guide by myself on Brady MCGUIRE assisted by holding retractors. At this point appropriate size implants were chosen and opened. The joint was irrigated copiously with pulse lavage mechanical irrigation. The wound was irrigated with pulse lavage mechanical irrigation. We mixed antibiotic methylmethacrylate. We placed the knee into flexion. We placed multiple retractors assisted by Brady MCGUIRE to expose the proximal tibia. Once the methyl methacrylate was ready, the tibial component was cemented into place removing any excess methylmethacrylate form by both myself and Brady MCGUIRE. The femoral component was cemented into place removing the removing any excess methylmethacrylate performed by both myself and Brady MCGUIRE. We then inserted the appropriate size polyethylene tibial insert. We made sure that it was locked into position. We took the knee into full extension, and then back in a flexion making sure we had removed any excess methylmethacrylate. The patellar component was then cemented down and secured with clamp. Excess methylmethacrylate removed. We kept the knee in full extension, patellar clamp in position until methylmethacrylate had hardened. Once it had hardened the patellar clamp was removed. The knee was taken through full range of motion. The patella tracked nicely. There was good soft tissue balancing. The tourniquet was now released. Additional hemostasis was achieved via electrocautery. A second gram of TXA was given. The wound again was irrigated with pulse lavage mechanical irrigation. The superficial soft tissues were infiltrated local analgesic. The extensor mechanism was repaired with Ethibond suture. We checked the repair with range of motion and it was stable. The subcutaneous soft tissues were repaired with Vicryl in layers. The skin was approximated with pernio/Dermabond. Sterile dressings were applied followed by loose web roll and Jaxon bandage. The patient was transferred to a bed, and taken to recovery in stable and satisfactory condition. Brady MCGUIRE assisted with this complex procedure.
[2022-05-15 12:08] VITALS: TEMP 97
[2022-05-15 12:19] VITALS: RESP 16
[2022-05-15] MEDS ORDERED: ROPIVACAINE 0.2%-NS ON-Q PUMP 2 MG/ML EACH MISCELLANE ONE (12:23)
[2022-05-15] MEDS ORDERED: HYDROmorphone 0.5 MG/0.5 ML SYRINGE IVP ONE (12:31)
--- NOTE | 2022-05-15 12:45 | XR ---
EXAMINATION TYPE: XR knee limited LT DATE OF EXAM: 05/15/2022 12:36 PM INDICATION: Patient age:Female; 62 years old; Reason for study: Evaluation for Postop abnormality and alignment; [facility]. COMPARISON: Left knee radiograph 02/01/2022 TECHNIQUE: The Left knee(s) was examined in frontal and crosstable lateral projections. FINDINGS: Postsurgical changes from left knee arthroplasty with distal femoral and proximal tibial c omponents. Hardware appears intact with appropriate alignment. There is associated soft tissue gas an d edema. No acute fracture or dislocation. IMPRESSION: Postsurgical changes from left knee arthroplasty. Hardware appears intact with appropriate alignment.
[2022-05-15] MEDS ORDERED: HYDROcodone/APAP 7.5-325MG 1 EACH TAB PO ONE (14:11)
[2022-05-15 14:46] VITALS: BP 169/90; PULSE 90
--- NOTE | 2022-05-16 11:31 | P.ANPRN ---
Procedure Note - Anesthesia - Nerve Block Performed Left Adductor Canal Infusion Time Out Performed: Yes Date of Procedure: 05/15/22 Procedure Start Time: 09:38 Procedure Stop Time: 09:46 Location of Patient: PreOp Indication: Acute Post-Operative Pain, Requested by Surgeon Sedation Type: Sedate with meaningful contact maintained Preparation: Sterile Prep, Sterile Dressing Position: Supine Catheter: Indwelling Needle Types: Pajunk Needle Gauge: 21 Ultrasound used to visualize needle placement: Yes Ultrasound used to observe medication spread: Yes Blood Aspirated: No Pain Paresthesia on Injection Noted: No Resistance on Injection: Normal Image Stored and Saved: Yes Events: Uneventful and Well Tolerated (ropi .5% 20cc plus dexamethasone 4mg)
--- NOTE | 2022-05-16 11:32 | P.ANPRN ---
Procedure Note - Anesthesia - Nerve Block Performed Left iPack Single Time Out Performed: Yes Date of Procedure: 05/15/22 Procedure Start Time: 09:47 Procedure Stop Time: 09:50 Location of Patient: PreOp Indication: Acute Post-Operative Pain, Requested by Surgeon Sedation Type: Sedate with meaningful contact maintained Preparation: Sterile Prep Position: Supine Needle Types: Pajunk Needle Gauge: 21 Ultrasound used to visualize needle placement: Yes Ultrasound used to observe medication spread: Yes Blood Aspirated: No Pain Paresthesia on Injection Noted: No Resistance on Injection: Normal Image Stored and Saved: Yes Events: Uneventful and Well Tolerated (ropi .5% 25cc plus dexamethasone 4mg)
== END 2022-05-15 16:27 | disposition home health service (06) ==
LOC: OR 08:18
PROVIDERS: ATTEND Orthopaedic Surgery
DX: M17.12 Unilateral primary osteoarthritis, left knee (principal); G89.18 Other acute postprocedural pain; E03.9 Hypothyroidism, unspecified; K21.9 Gastro-esophageal reflux disease without esophagitis; Z79.890 Hormone replacement therapy; Z88.0 Allergy status to penicillin; Z88.1 Allergy status to other antibiotic agents; Z79.899 Other long term (current) drug therapy
CPT/HCPCS: 27447; 64999; 64447; 76942; 97530; 97161; 73560; J2250; J1100; J0690 ×2; J2405; J1170; J2795; 64448; 88300